=== PATIENT | male | born 1985 | race Caucasian/White ===

== ENCOUNTER 2016-12-13 09:18 | Emergency (ER) | payer OTHER ==
[~2016-12-13] VITALS: Ht 167.6 cm; Wt 70.3 kg
[2016-12-13 09:26] VITALS: BP 125/77; PULSE 59; RESP 20; TEMP 98.8; O2SAT 99
--- NOTE | 2016-12-13 09:26 | NUR ---
Pt triaged and Dr. Arroyo performs MSE in triage room. Pt states that a bee stung him near the Right ear yesterday. Generalized swelling noted to Right Cheek. Pt states pain radiates to Right neck. Denies throat swelling or closure, no respiratory distress. BBS clear.
[2016-12-13] MEDS ORDERED: DIPHENHYDRAMINE HCL 50 MG CAPSULE PO ONE (09:30)
[2016-12-13] MEDS ORDERED: FAMOTIDINE 20 MG TABLET PO ONE (09:30)
[2016-12-13] MEDS ORDERED: DEXAMETHASONE SOD PHOSPHATE 10 MG/ML VIAL IM ONE (09:30)
--- NOTE | 2016-12-13 09:40 | NUR ---
Pt placed to ER bed 08.
[2016-12-13 10:30] VITALS: BP 122/80; PULSE 58; RESP 20; TEMP 98.6; O2SAT 100
--- NOTE | 2016-12-13 10:30 | NUR ---
Patient given written and verbal discharge instructions and verbalizes understanding. ER MD discussed with patient the results and treatment provided. Given copies of tests performed in ER. Patient in stable condition. ID arm band removed. Rx of Epi Pen and Prednisone given. Patient educated on pain management and to follow up with PMD. Pain Scale 3/10, tolerable after medication. Opportunity for questions provided and answered.
== END 2016-12-13 10:30 | disposition home or self-care (01) ==
LOC: SED 09:18
DX: S00.86XA Insect bite (nonvenomous) of other part of head, initial encounter (principal); R22.0 Localized swelling, mass and lump, head; R03.0 Elevated blood-pressure reading, without diagnosis of hypertension; W57.XXXA Bitten or stung by nonvenomous insect and other nonvenomous arthropods, initial encounter; Y93.89 Activity, other specified; Y92.89 Other specified places as the place of occurrence of the external cause; Y99.8 Other external cause status
CPT/HCPCS: 96372; 99283; J1100; Q0163